=== PATIENT | male | born 1970 | race Two or more races ===

== ENCOUNTER 2021-08-05 16:41 | Emergency (ER) | payer MEDICARE ==
[~2021-08-05] VITALS: Ht 175.3 cm; Wt 69.0 kg
[2021-08-05] MEDS ORDERED: klonopin (16:52)
[2021-08-05 22:24] LABS: BASOPHILS % 0.5 % (0.0-2.0); EOSINOPHILS % 5.5 % (0.0-5.0); HEMATOCRIT. 44.8 % (42.0-52.0); HEMOGLOBIN. 14.7 g/dL (14.0-18.0); LYMPHOCYTES % 43.9 % (20.0-50.0); MEAN CORPUSCULAR HEMOGLOBIN 28.3 pg (28.0-32.0); MEAN CORPUSCULAR VOLUME 86.5 fL (80.0-94.0); MEAN PLATELET VOLUME 8.7 fl (7.4-10.4); NEUTROPHILS % 41.1 % (40.0-76.0); PLATELET 199 x1000/uL (130-400); RED BLOOD CELL COUNT 5.18 mill/uL (4.7-6.1); RED CELL DISTRIBUTION WIDTH 13.3 % (11.6-14.6)
[2021-08-05 22:30] LABS: CHLORIDE 108 mEq/L (98-107)
[2021-08-05 22:34] LABS: ETHANOL BLOOD < 10 mg/dL
[2021-08-05] MEDS ORDERED: MAGNESIUM 2 G PREMIX 50 ML IV ONE (23:15)
[2021-08-06 05:30] VITALS: BP 121/53
== END 2021-08-06 05:55 | disposition home or self-care (01) ==
LOC: ER 16:41
DX: F41.9 Anxiety disorder, unspecified (principal); I44.7 Left bundle-branch block, unspecified; Z86.73 Personal history of transient ischemic attack (TIA), and cerebral infarction without residual deficits
CPT/HCPCS: 36415; 71045; 80053; 80320; 83735; 83880; 84484; 85025; 93005; 96365; 99285; J3475; G0480